=== PATIENT | female | born 1995 | race Caucasian/White ===

== ENCOUNTER 2017-05-03 01:08 | Emergency (ER) | payer OTHER ==
[~2017-05-03] VITALS: Ht 162.6 cm; Wt 72.7 kg
[~2017-05-03 01:08] MED LIST: NOCURR
[2017-05-03 03:20] VITALS: BP 124/80
== END 2017-05-03 03:37 | disposition home or self-care (01) ==
LOC: EMS 01:09
DX: G43.909 Migraine, unspecified, not intractable, without status migrainosus (principal)
CPT/HCPCS: 99283